=== PATIENT | male | born 1950 | race Caucasian/White ===

== ENCOUNTER 2018-01-19 12:13 | Observation (INO) | payer MEDICARE, OTHER ==
--- NOTE | 2018-01-19 12:56 | RAD ---
CHEST ONE VIEW: History: 67-year-old male with history of chest pain. FINDINGS: Left ICD. Monitor leads overlie the chest. Heart size is within normal limits. Minimal increased line ar and interstitial markings bilaterally without confluent pneumonia, overt edema, or pleural effusio n. IMPRESSION: No significant acute intrathoracic disease. Left ICD. No prior radiographs. POS: [facility]
[2018-01-19 13:11] LABS: #Eosinphils 0.2 thou/uL (0.0-0.7); #Lymphocytes 1.1 thou/uL (1.20-3.40); #Monocytes 0.5 thou/uL (0.11-0.59); #Neutrophils 5.1 thou/uL (1.40-6.50); %Basophils 0.1 % (0.0-1.0); %Eosinophils 2.2 % (0.0-10.0); %Lymphocytes 15.9 % (21.0-51.0); %Monocytes 7.8 % (0.0-10.0); Hemoglobin 14.6 g/dL (14.0-18.0); Mean Corpuscular HGB CONC 33.8 g/dL (32.0-36.0); Mean Corpuscular Hemoglobin 30.7 pg (27.0-31.0); Mean Corpuscular Volume 90.9 fL (78.0-98.0); Mean Platelet Volume 9.4 fL (7.4-10.4); Platelet Count 152 thou/uL (130-400); RBC Distribution Width 18.1 % (11.5-14.5); Red Blood Cell (RBC) Count 4.76 mill/uL (4.70-6.10); White Blood Cell (WBC) Count 6.9 thou/uL (4.8-10.8)
[2018-01-19 13:29] LABS: ALT (SGPT) 43 U/L (8-55); AST (SGOT) 72 U/L (5-34); Albumin 3.8 g/dL (3.4-4.8); Alkaline Phosphatase 86 U/L (40-150); Anion Gap 11 mmol/L (10-20); BUN (Urea Nitrogen) 32 mg/dL (8.4-25.7); Bilirubin, Total 1.7 mg/dL (0.2-1.2); CK (CPK) 211 U/L (30-200); Calc. Creatinine Clearance 0 mL/min (70-130); Calcium 9.9 mg/dL (7.8-10.44); Carbon Dioxide 26 mmol/L (23-31); Chloride 101 mmol/L (98-107); Estimated GFR-MDRD 63; Globulin 2.9 g/dL (2.4-3.5); Glucose 225 mg/dL (80-115); Potassium 4.2 mmol/L (3.5-5.1); Protein, Total 6.7 g/dL (5.8-8.1); Sodium 134 mmol/L (136-145)
[2018-01-19 13:30] LABS: CKMB 3.6 ng/mL (0-6.6); Troponin I Less than 0.010 ng/mL (< 0.028)
[2018-01-19] MEDS ORDERED: Acetaminophen 500 MG TAB ONE (14:42)
[2018-01-19 17:23] LABS: Troponin I Less than 0.010 ng/mL (< 0.028)
[2018-01-19 20:13] LABS: Troponin I Less than 0.010 ng/mL (< 0.028)
[2018-01-19] MEDS ORDERED: Dextrose 50% Abboject 50 ML SYRINGE SLOW IVP PRN (21:24)
[2018-01-19] MEDS ORDERED: Dextrose 5% in Water 1,000 ML IV PRN (21:24)
[2018-01-19] MEDS: Insulin Regular 300 UNITS/3 ML VIAL SC PRN (21:56)
[2018-01-19] MEDS ORDERED: HYDROcodone/Acetaminophen 5/325 mg Tablet PO PRN (22:44)
[2018-01-19] MEDS ORDERED: Atorvastatin Calcium 40 MG TAB PO SCH (22:45)
[2018-01-19] MEDS ORDERED: NPH, Human Insulin Isophane 300 UNIT/3 ML VIAL SC SCH (22:45)
[2018-01-19] MEDS ORDERED: Allopurinol 100 MG TAB PO SCH (22:45)
[2018-01-20] MEDS: Allopurinol 100 MG TAB PO SCH ×3 (08:53→20:18)
[2018-01-20] MEDS ORDERED: Nitroglycerin 0.4 MG TAB (25 Tab Bottle) PO PRN (09:08)
[2018-01-20] MEDS ORDERED: Non-Formulary Item 1 EACH (Cholecalciferol (Vitamin D3) [Vitamin D3] 50,000 UNIT) PO SCH (09:15)
[2018-01-20 09:44] LABS: #Eosinphils 0.3 thou/uL (0.0-0.7); #Lymphocytes 1.3 thou/uL (1.20-3.40); #Monocytes 0.4 thou/uL (0.11-0.59); #Neutrophils 2.9 thou/uL (1.40-6.50); %Basophils 0.5 % (0.0-1.0); %Eosinophils 6.5 % (0.0-10.0); %Lymphocytes 25.3 % (21.0-51.0); %Monocytes 8.7 % (0.0-10.0); Hemoglobin 14.7 g/dL (14.0-18.0); Mean Corpuscular HGB CONC 32.8 g/dL (32.0-36.0); Mean Corpuscular Hemoglobin 30.2 pg (27.0-31.0); Mean Corpuscular Volume 92.1 fL (78.0-98.0); Mean Platelet Volume 9.7 fL (7.4-10.4); Platelet Count 144 thou/uL (130-400); RBC Distribution Width 18.2 % (11.5-14.5); Red Blood Cell (RBC) Count 4.89 mill/uL (4.70-6.10)
[2018-01-20 09:45] LABS: Hemoglobin A1c 8.4 % (4.0-6.0)
[2018-01-20] MEDS ORDERED: Ergocalciferol 1.25 MG(50,000 UNITS) CAP PO SCH (10:00)
[2018-01-20 10:03] LABS: ALT (SGPT) 57 U/L (8-55); AST (SGOT) 54 U/L (5-34); Albumin 3.8 g/dL (3.4-4.8); Alkaline Phosphatase 82 U/L (40-150); Anion Gap 11 mmol/L (10-20); BUN (Urea Nitrogen) 28 mg/dL (8.4-25.7); Bilirubin, Total 1.2 mg/dL (0.2-1.2); Calc. Creatinine Clearance 142 mL/min (70-130); Calcium 10.1 mg/dL (7.8-10.44); Carbon Dioxide 27 mmol/L (23-31); Cardiac Risk 3.4 (Less than 4.5); Chloride 101 mmol/L (98-107); Cholesterol 131 mg/dl (< 200 Desired); Estimated GFR-MDRD 66; Glucose 190 mg/dL (80-115); HDL Cholesterol 39 mg/dL (>60 Neg Risk); LDL Cholesterol, Calculated 60 mg/dL; Lipase 69 U/L (8-78); Potassium 4.1 mmol/L (3.5-5.1); Protein, Total 6.8 g/dL (5.8-8.1); Sodium 135 mmol/L (136-145); Triglycerides 160 mg/dL (Less than 150); Troponin I Less than 0.010 ng/mL (< 0.028)
[2018-01-20 11:41] LABS: Bilirubin Negative (Negative); Blood, Urine Negative (Negative); Clarity CLEAR (Clear); Glucose, Urine (Dipstick) Negative (Negative); Leukocyte Negative (Negative); Nitrite Negative (Negative); Protein, Urine (Dipstick) Trace mg/dL (Neg-Trace); Specific Gravity, Urine 1.018 (1.002-1.036)
[2018-01-20] MEDS ORDERED: metFORMIN 500 MG TAB PO SCH (12:00)
[2018-01-20] MEDS ORDERED: Docusate 100 MG CAP PO SCH (12:00)
[2018-01-20] MEDS ORDERED: Aspirin 81 mg Enteric Coated Tablet PO SCH (12:00)
[2018-01-20] MEDS ORDERED: Lisinopril 10 MG TAB PO SCH (12:00)
[2018-01-20] MEDS ORDERED: Levothyroxine Sodium 25 MCG TAB PO SCH (12:00)
[2018-01-20] MEDS ORDERED: Clopidogrel Bisulfate 75 MG TAB PO SCH (12:00)
[2018-01-20] MEDS ORDERED: Furosemide 40 MG TAB PO SCH (12:00)
[2018-01-20] MEDS ORDERED: Triamterene/Hydrochlorothiazide 37.5 mg/25 mg Tablet PO SCH (12:00)
[2018-01-20] MEDS ORDERED: Levothyroxine Sodium 112 MCG TAB PO SCH (12:00)
[2018-01-20] MEDS ORDERED: Gemfibrozil 600 MG TAB PO SCH (12:00)
[2018-01-20] MEDS ORDERED: Allopurinol 100 MG TAB PO SCH (15:00)
--- NOTE | 2018-01-20 15:21 | HP ---
CHIEF COMPLAINT: Chest pain. HISTORY OF PRESENT ILLNESS: This is a 67-year-old male with a known history of coronary artery disea se, status post several PCIs, and is followed by a mail clerks supervisor, Dr. Masters out in [place], [place], a [facility]'s. The patient describes awakening with chest pressure yesterday that progressed thro ughout the day and was not alleviated with either nitroglycerin tabs nor aspirin. He also describes accompanying shortness of breath and subsequently called for EMS and was brought to the emergency dep artment. Patient states that he is aware that he has severe coronary artery disease. He states that he has be en followed very carefully for this as well. He was given a dose of fentanyl in the EMS ride, which has resolved his chest discomfort and patient denies having had any recurrence. Patient currently gil s a mild degree of dyspnea with conversation, which he says is grossly at his baseline. The patient also notes that yesterday he had some nausea with some vague abdominal discomfort, accomp anied by dark stool. Patient recalls a known personal history of retroperitoneal bleed when he was o n 2 anticoagulants in the past. REVIEW OF SYSTEMS: As per HPI. Constitutional: No recent significant weight change in the last 3 m onths. The patient denies any fevers or chills. HEENT: Denies any headache, vision changes accompa nying his described symptoms as above. Cardiovascular: Chest pain as above, currently resolved. No left-sided arm numbness or tingling. Respiratory: Conversational dyspnea, but grossly at the patie nt's baseline per his own description. No recent upper respiratory infection. No congestion. No co ugh. Gastrointestinal: Nausea, abdominal pain as noted above without emesis. Denies any diarrhea. Dark stools as noted above. No yasmeen blood in bowel movements. Genitourinary: Denies any dysuria, change in urinary frequency, quality, or quantity. Musculoskeletal: Moving all 4 extremities witho ut any new difficulty. Denies any new arthralgias, myalgias, or skin changes. PAST MEDICAL HISTORY: As per above involves, 1. Coronary artery disease, status post PCI. It sounds like twice with [address] ates he has significant cardiovascular disease and was deemed a non-CABG candidate in the past due to his comorbidities. 2. Insulin-dependent diabetes. 4. Hyperlipidemia. 5. Hypothyroidism. 6. Hypertension. 7. Gout. 8. Morbid obesity. 9. Atrial fibrillation. 10. Congestive heart failure with an unknown ejection fraction. 11. Status post PCI as noted above. 12. Status post AICD placement. ALLERGIES: No known drug allergies. Question of an allergy to a "heart medication," unclear exactly which one it is. HOME MEDICATIONS: Per the EMR, the patient's list includes insulin NPH 28 units subcu q.a.m. and 30 units subcu q.p.m., docusate 100 mg p.o. daily, metformin 1000 mg p.o. b.i.d., isosorbide mononitrate 30 mg p.o. daily, furosemide 40 mg p.o. daily, cholecalciferol 50,000 units p.o. every 30 days, pant oprazole 40 mg p.o. daily, levothyroxine 137 mcg p.o. daily, clopidogrel 75 mg p.o. daily, atorvastat in 40 mg p.o. at bedtime, aspirin 81 mg p.o. daily, allopurinol 100 mg p.o. t.i.d., lisinopril 10 mg p.o. daily, gemfibrozil 1200 mg p.o. daily, metoprolol succinate 25 mg p.o. daily, triamterene/hydroc hlorothiazide 37.5/25 mg 1 tab p.o. daily. FAMILY HISTORY: Patient does not recount any family history of coronary artery disease. SOCIAL HISTORY: The patient denies any alcohol, tobacco, or illicit drug use. He lives at home. He is retired. He designates his as his medical decision maker if he is unable to make his own me dical decisions. Patient endorses being FULL CODE at this point in time. He states that he has " d" twice before while at [employer]. PHYSICAL EXAMINATION: GENERAL: The patient is awake, alert, appropriate, in no acute distress, seated on the edge of the h ospital bed. HEENT: Normocephalic, atraumatic. Moist mucous membranes. Equal ocular motions are intact. CARDIOVASCULAR: Soft heart tones, S1 and S2. No murmurs, rubs, or gallops. Pulses 2+ bilateral upp er extremities, 1+ bilateral lower extremity, pitting pedal edema. RESPIRATORY: Positive for conversational dyspnea, diminished throughout. No wheezes, rales, or rhon chi. Marginal air movement. ABDOMEN: Obese, positive bowel sounds, soft, nontender to palpation. MUSCULOSKELETAL: Able to move all four extremities equally. LABORATORY DATA AND IMAGING: WBC 5.0, hemoglobin 14.7, hematocrit 45.0, platelets 144. Sodium 135, potassium 4.1, chloride 101, bicarb 27, BUN 28, creatinine 1.11, glucose 190, hemoglobin A1c 8.4, patricia cium 10.1, total bilirubin 1.2, AST 54, ALT 57, alkaline phosphatase 82. Troponin less than 0.01 x3. Total protein 6.8 and albumin 3.8. Triglycerides 160, cholesterol 131, LDL 60, HDL 39. Lipase 69. TSH 2.4145. UA is essentially bland. 01/19/2018, chest x-ray, impression, "no significant acute intrathoracic disease. Left ICD. No prio r radiographs." ASSESSMENT AND PLAN: A 67-year-old male, who presents with a chief complaint of chest pain. 1. Chest pain in a patient with a known coronary artery disease history. Patient has an extensive c ardiac history. Discussed with the patient serial troponins, which have been negative. Patient has called his outpatient mail clerks supervisor in [place]. At this point in time, we will proceed with interroga tion of the automated implantable cardioverter-defibrillator surrounding his event. Unfortunately, h is story is concerning for the possibility of acute coronary syndrome, perhaps one that has completed as well. We will obtain a 2D echocardiogram. It was discussed with the patient the option of a str ess test or Cardiology consultation. The patient adamantly declines a stress test today that his ayanna or stress test "killed him." He states that he has called his mail clerks supervisor's office. They would lik e for his planned evaluation as detailed above to be faxed over and to co-manage and determine whethe r or not an inpatient Cardiology consult on our end would be beneficial. The pros and cons of such a n approach were discussed thoroughly with the patient, who would like to proceed as noted above. 2. Hypertension, stable. Continue home regimen. 3. Insulin-dependent diabetes, with marginal control. Hemoglobin A1c 8.4. Continue the home regime n. Closely monitor the patient's oral intake. 4. Hyperlipidemia. See elevated triglycerides. We will continue the patient on his current home re gimen. May benefit from further outpatient titration. 5. Obesity. This is grossly unchanged from baseline. 6. Diet: Cardiac, diabetic. 7. Activity: As tolerated. 8. Deep venous thrombosis prophylaxis, sequential compression devices. 9. Prior history of retroperitoneal bleed with concern for melena earlier today. Closely monitor wi th a check of occult stool. The patient is currently hemodynamically stable. The patient has stable H and H as well. Thank you for asking me to care for the patient. Greater than 60 minutes spent at bedside.
[2018-01-20] MEDS: metFORMIN 500 MG TAB PO SCH (18:02)
[2018-01-20] MEDS: Insulin Regular 300 UNITS/3 ML VIAL SC PRN ×2 (18:02→21:49)
[2018-01-20] MEDS ORDERED: NPH, Human Insulin Isophane 300 UNIT/3 ML VIAL SC SCH ×2 (21:00)
[2018-01-20] MEDS ORDERED: Atorvastatin Calcium 40 MG TAB PO SCH ×2 (21:00)
[2018-01-21 04:54] LABS: #Eosinphils 0.5 thou/uL (0.0-0.7); #Lymphocytes 2.1 thou/uL (1.20-3.40); #Monocytes 0.5 thou/uL (0.11-0.59); #Neutrophils 3.1 thou/uL (1.40-6.50); %Basophils 0.6 % (0.0-1.0); %Eosinophils 7.7 % (0.0-10.0); %Lymphocytes 33.7 % (21.0-51.0); %Monocytes 8.2 % (0.0-10.0); %Neutrophils 49.7 % (42.0-75.0); Hemoglobin 15.6 g/dL (14.0-18.0); Mean Corpuscular HGB CONC 33.4 g/dL (32.0-36.0); Mean Corpuscular Hemoglobin 30.4 pg (27.0-31.0); Mean Platelet Volume 9.4 fL (7.4-10.4); Platelet Count 169 thou/uL (130-400); RBC Distribution Width 18.2 % (11.5-14.5); Red Blood Cell (RBC) Count 5.13 mill/uL (4.70-6.10); White Blood Cell (WBC) Count 6.3 thou/uL (4.8-10.8)
[2018-01-21] MEDS ORDERED: Levothyroxine Sodium 25 MCG TAB PO SCH (06:00)
[2018-01-21] MEDS ORDERED: Levothyroxine Sodium 112 MCG TAB PO SCH (06:00)
[2018-01-21 06:04] VITALS: BMI 49.1
[2018-01-21] MEDS: Insulin Regular 300 UNITS/3 ML VIAL SC PRN ×2 (06:47→12:59)
[2018-01-21] MEDS ORDERED: Gemfibrozil 600 MG TAB PO SCH (09:00)
[2018-01-21] MEDS ORDERED: Triamterene/Hydrochlorothiazide 37.5 mg/25 mg Tablet PO SCH (09:00)
[2018-01-21] MEDS ORDERED: Docusate 100 MG CAP PO SCH (09:00)
[2018-01-21] MEDS ORDERED: NPH, Human Insulin Isophane 300 UNIT/3 ML VIAL SC SCH (09:00)
[2018-01-21] MEDS ORDERED: Non-Formulary Item 1 EACH (Triamterene/Hydrochlorothiazid [Triamterene-Hctz 37.5-25 Mg Cp PO SCH (09:00)
[2018-01-21] MEDS ORDERED: Lisinopril 10 MG TAB PO SCH (09:00)
[2018-01-21] MEDS ORDERED: Aspirin 81 mg Enteric Coated Tablet PO SCH (09:00)
[2018-01-21] MEDS ORDERED: Furosemide 40 MG TAB PO SCH (09:00)
[2018-01-21] MEDS ORDERED: Clopidogrel Bisulfate 75 MG TAB PO SCH (09:00)
[2018-01-21] MEDS ORDERED: Non-Formulary Item 1 EACH (Levothyroxine Sodium [Levothyroxine Sodium] 137 MCG) PO SCH (09:00)
[2018-01-21] MEDS: metFORMIN 500 MG TAB PO SCH (09:23)
[2018-01-21] MEDS: Allopurinol 100 MG TAB PO SCH ×2 (09:24→15:20)
[2018-01-21 12:03] VITALS: BP 134/84; TEMP 98.2
== END 2018-01-21 16:14 | disposition home or self-care (01) ==
LOC: ERS 12:13 → 2SW 16:42
PROVIDERS: ADMIT Internal Medicine; ATTEND Internal Medicine
DX: R07.89 Other chest pain (principal); I25.10 Atherosclerotic heart disease of native coronary artery without angina pectoris; E11.9 Type 2 diabetes mellitus without complications; E78.5 Hyperlipidemia, unspecified; E03.9 Hypothyroidism, unspecified; M10.9 Gout, unspecified; I48.91 Unspecified atrial fibrillation; I11.0 Hypertensive heart disease with heart failure; I50.9 Heart failure, unspecified; E66.01 Morbid (severe) obesity due to excess calories; Z68.42 Body mass index [BMI] 45.0-49.9, adult; Z79.4 Long term (current) use of insulin; Z79.02 Long term (current) use of antithrombotics/antiplatelets; Z79.82 Long term (current) use of aspirin; Z79.899 Other long term (current) drug therapy; Z95.810 Presence of automatic (implantable) cardiac defibrillator
CPT/HCPCS: 71045; 80053; 80061; 81003; 82274; 82550; 82553; 82962 ×3; 83036; 83690; 84484 ×3; 85025 ×2; 93005; 93306; 94760; 99285; G0378; 36415; 36416; 84443; A4216; J1815